=== PATIENT | male | born 1990 | race Caucasian/White ===

== ENCOUNTER 2019-08-07 20:17 | Inpatient (IN) | payer OTHER ==
[~2019-08-07] VITALS: Ht 175.3 cm; Wt 77.6 kg
[2019-08-07 20:20] VITALS: BP 173/116
--- NOTE | 2019-08-07 20:24 | NUR ---
PT AMBULARED TO ROOM 11.
[2019-08-07] MEDS ORDERED: NACL 0.9% 1,000 ML IV ONE (20:30)
--- NOTE | 2019-08-07 20:35 | NUR ---
PHLEB DRAWING BLOOD AT BEDSIDE.
--- NOTE | 2019-08-07 20:35 | NUR ---
29 YO M BIB SELF AND MOM PRESENTS TO ED C/O 06/29 DIFFUSE BLOATING ABDOMINAL PAIN X 6 HOURS WITH MILD NAUSEA, VOMITING X 2, DIARRHEA X 2. PT STATES "I FEEL LIKE I NEED TO BURP BUT I CAN'T". PT ADMITS TO DRINKING X 3 BEERS LAST NIGHT AND X 1 TODAY @ 1700. PT STATES HE LAST ATE THIS MORNING: [employer], [employer], [employer]. -- PT AWAKE, A/O X 4. CALM, COOPERATIVE. APPEARS UNCOMFORTABLE. BEHAVIOR AGE APPROPRIATE. ANSWERS QUESTIONS IN CLEAR, FULL SENTENCES. -- SKIN PINK, WARM, DRY. BREATHING EVEN, UNLABORED. -- ABD SOFT, NON TENDER. BOWEL SOUNDS HEARD +4. PMH-- DENIES RX-- TRIED TAKING MYLANTA AND PEPTO BISMO WITH NO RELIEF
--- NOTE | 2019-08-07 20:37 | NUR ---
Dr. Johnston examining patient.
[2019-08-07] MEDS ORDERED: KETOROLAC 30 MG/ML VIAL IVP ONE (20:40)
[2019-08-07 20:50] LABS: HEMATOCRIT 45.9 % (36-52); HEMOGLOBIN 15.4 g/dL (12.0-18.0); MEAN CORPUSCULAR HEMOGLOBIN 30 pg (27-31); MEAN CORPUSCULAR HGB CONC 34 g/dL (33-37); MEAN CORPUSCULAR VOLUME 90.4 fL (80-94); PLATELET COUNT (AUTO) 328 K/uL (140-450); RED BLOOD CELL COUNT(AUTO) 5.07 MIL/uL (4.20-6.10); RED CELL DISTRIBUTION WIDTH 13.3 % (11.6-13.7); WHITE BLOOD COUNT (AUTO) 22.1 K/uL (4.8-10.8)
--- NOTE | 2019-08-07 20:58 | NUR ---
PT TAKEN TO RADIOLOGY VIA .
[2019-08-07 21:00] LABS: ANION GAP 15.2 (8-16); CARBON DIOXIDE 26.5 mmol/L (21-32); CREATININE 0.9 mg/dL (0.7-1.3); POTASSIUM 3.7 mmol/L (3.5-5.1)
--- NOTE | 2019-08-07 21:05 | NUR ---
PT RETURNED FROM RADIOLOGY.
[2019-08-07 21:06] LABS: ALBUMIN 4.4 g/dL (3.4-5.0); TOTAL BILIRUBIN 0.5 mg/dL (0.0-1.0)
[2019-08-07 21:07] LABS: EOSINOPHILS % (MANUAL) 1 % (0-4); LYMPHOCYTES % (MANUAL) 6 % (20-46); MONOCYTES % (MANUAL) 9 % (5-12)
--- NOTE | 2019-08-07 21:24 | NUR ---
PT REPORTS 0/10 PAIN; MEDICATION EFFECTIVE.
--- NOTE | 2019-08-07 21:30 | NUR ---
PT REFUSING CT SCAN. PT STATES "I FEEL BETTER SO I DON'T NEED IT". DR. RODRIGUEZ SPEAKING WITH PT.
--- NOTE | 2019-08-07 22:38 | NUR ---
DR. RODRIGUEZ REEVALUATING AT BEDSIDE.
[2019-08-07] MEDS ORDERED: metroNIDAZOLE 500 MG/NS PREMIX 100 ML IV ONE (22:40)
[2019-08-07] MEDS ORDERED: cefTRIAXone 1,000 MG VIAL ONE (22:42)
--- NOTE | 2019-08-07 22:48 | NUR ---
PT AMBULATES TO RR WITH STEADY GAIT.
[2019-08-07] MEDS ORDERED: ACETAMINOPHEN 325 MG TAB PO PRN (22:50)
[2019-08-07] MEDS ORDERED: DOCUSATE SODIUM 100 MG GELCAP PO PRN (22:50)
[2019-08-07] MEDS ORDERED: LORazepam 2 MG/ML VIAL IM/IVP PRN (22:50)
[2019-08-07] MEDS ORDERED: ZOLPIDEM 5 MG TAB PO PRN (22:50)
[2019-08-07] MEDS ORDERED: ONDANSETRON 4 MG/2 ML VIAL IM/IVP PRN (22:50)
[2019-08-07] MEDS ORDERED: KETOROLAC 15 MG/ML VIAL IVP PRN (22:50)
[2019-08-07 23:31] LABS: PROTHROMBIN TIME 10.4 secs (10.8-13.4)
[2019-08-07 23:34] LABS: MAGNESIUM 1.9 mg/dL (1.8-2.4); PHOSPHORUS 3.9 mg/dL (2.5-4.9); THYROID STIMULATING HORMONE 2.12 uIU/mL (0.34-3.74)
[2019-08-07 23:46] LABS: APPEARANCE,URINE CLEAR (CLEAR); BLOOD, URINE 1+ (NEGATIVE); COLOR,URINE YELLOW (YELLOW); UGLUCOSE NEGATIVE (NEGATIVE)
[2019-08-07 23:47] LABS: BILIRUBIN,URINE NEGATIVE (NEGATIVE); LEUKOCYTE ESTERASE ,URINE NEGATIVE (NEGATIVE); NITRITE, URINE NEGATIVE (NEGATIVE)
[2019-08-07 23:50] LABS: BARBITURATE, URINE NEG. ng/ml (NEG <=200); BENZODIAZEPINE, URINE NEG. ng/mL (NEG <=200); CANNABINOID, URINE POS. ng/mL (NEG <=50); COCAINE, URINE NEG. ng/mL (NEG <=300); OPIATE, URINE NEG. ng/mL (NEG <=2000); PHENCYCLIDINE SCREEN,URINE NEG. ng/mL (NEG <=25); WBC,URINE 0-5 /HPF (0-5)
--- NOTE | 2019-08-07 23:54 | NUR ---
Patient will be admitted to care of Dr. Escobedo. Admited to [facility]. Will go to room 123A. Belongings list completed. Report to RODOLFO Castro.
[2019-08-08] VITALS: BP 149/92
--- NOTE | 2019-08-08 | NUR ---
PT ARRIVE VIA W/C TO ROOM 123 AND AMBULATED TO BED B INDEPENDENTLY WITH A STEADY GAIT. PT IS AOX4, BILINGUAL , SKIN INTACT WITH IV IS A 20G ON LEFT AC. V/S STABLE. PT SAYS PAIN IS TOLERABLE. MRSA SWAB DONE AND SENT TO LAB.ADMDSION INTERVEIW DONE AT BEDSIDE , PT HAS NO MEDICAL HX AND IS NPO AT THIS TIME. PENDING CONSULT WITH SURGEON TISH.
[2019-08-08] MEDS: DEXT 5% /NACL 0.9% 1,000 ML IV SCH ×3 (01:18→16:30)
[2019-08-08] MEDS: MORPHINE SULFATE 2 MG/ML SYR IVP PRN ×3 (01:19→15:11)
--- NOTE | 2019-08-08 01:20 | NUR ---
PT C/O SEVERE PAIN, GIVEN IVP MORPHINE WILL MONITOR FOR PAIN RELIEF. D5NS ORDERED TO RUN AT 100MLS/HR.
--- NOTE | 2019-08-08 06:49 | NUR ---
PATIENT HAS BEEN SCREENED AND CATEGORIZED LOW NUTRITION RISK. PATIENT WILL BE SEEN WITHIN 7 DAYS OF ADMISSION. 08/15/19 LIZZETTE CALDERA MS, RDN
--- NOTE | 2019-08-08 07:00 | NUR ---
PT IN BED NO C/O VOICED IV SITE INTACT AND RUNNING D5NS ORDERED. PT GIVEN IVP SCHEDULED FLAGYL.
[2019-08-08] MEDS: metroNIDAZOLE 500 MG/NS PREMIX 100 ML IV SCH ×3 (07:07→22:57)
--- NOTE | 2019-08-08 07:11 | NUR ---
RECEIVED ENDORSEMENT FROM CAMPAIGN ASSOCIATE NURSE. PATIENT IS AAOX4, [place] SPEAKING. RESPIRATIONS ARE EVEN AND UNLABORED ON ROOM AIR. PATIENT DENIES ANY PAIN AT THIS TIME. LEFT AC 20G IV INTACT, PATENT, AND INFUSING IVF. PLAN OF CARE WAS REVIEWED WITH THE PATIENT, PATIENT VERBALIZED UNDERSTANDING. SAFETY MEASURES IN PLACE, CALL LIGHT WITHIN REACH.
[2019-08-08 08:00] VITALS: BP 127/80
[2019-08-08] MEDS: LACTOBACILLUS RHAMNOSUS GG 1 EACH CAP PO SCH (08:04)
--- NOTE | 2019-08-08 08:04 | NUR ---
ADMINISTERED SCHEDULED MEDICATION. PATIENT TOLERATED WELL. NO OTHER NEEDS AT THIS TIME.
--- NOTE | 2019-08-08 08:44 | NUR ---
PATIENT WAS SEEN BY DR. WINSTON. CONSENT FOR PROCEDURE WAS OBTAINED.
[2019-08-08 08:54] LABS: BASOPHILS % (AUTO) 0.2 % (0.0-2.0); EOSINOPHILS # (AUTO) 0.2 K/uL (0-0.4); EOSINOPHILS % (AUTO) 1.3 % (0.0-4.0); HEMOGLOBIN 13.8 g/dL (12.0-18.0); LYMPHOCYTES # (AUTO) 1.8 K/uL (2.0-11.5); LYMPHOCYTES % (AUTO) 12.6 % (20.5-51.1); MEAN CORPUSCULAR HEMOGLOBIN 30 pg (27-31); MEAN CORPUSCULAR HGB CONC 33 g/dL (33-37); MEAN CORPUSCULAR VOLUME 91.6 fL (80-94); MONOCYTES # (AUTO) 1.4 K/uL (0.8-1.0); MONOCYTES % (AUTO) 9.5 % (1.7-9.3); NEUTROPHILS # (AUTO) 11.2 K/uL (1.8-7.7); NEUTROPHILS % (AUTO) 76.4 % (42.2-75.2); PLATELET COUNT (AUTO) 287 K/uL (140-450); RED BLOOD CELL COUNT(AUTO) 4.58 MIL/uL (4.20-6.10); RED CELL DISTRIBUTION WIDTH 13.1 % (11.6-13.7); WHITE BLOOD COUNT (AUTO) 14.6 K/uL (4.8-10.8)
--- NOTE | 2019-08-08 09:40 | NUR ---
PATIENT MOVED ROOMS. NO OTHER NEEDS AT THIS TIME.
[2019-08-08 09:50] LABS: ANION GAP 13.8 (8-16); CREATININE 0.8 mg/dL (0.7-1.3); POTASSIUM 3.8 mmol/L (3.5-5.1)
[2019-08-08 09:55] LABS: CHOL/HDL RATIO 5.4 (1-4.5); MAGNESIUM 1.9 mg/dL (1.8-2.4); PHOSPHORUS 3.4 mg/dL (2.5-4.9)
--- NOTE | 2019-08-08 11:10 | NUR ---
PATIENT RESTING IN BED. DENIES ANY PAIN. NO OTHER NEEDS AT THIS TIME.
[2019-08-08] MEDS ORDERED: ONDANSETRON 4 MG/2 ML VIAL IVP ONE (12:27)
[2019-08-08] MEDS ORDERED: PROPOFOL 200 MG/20 ML VIAL IV ONE (12:27)
[2019-08-08] MEDS ORDERED: LIDOCAINE MPF 1% 10 MG/ML VIAL INJ ONE (12:27)
[2019-08-08] MEDS ORDERED: ROCURONIUM 50 MG/5 ML VIAL IV ONE (12:27)
[2019-08-08] MEDS ORDERED: DESFLURANE 240 ML BTL INH ONE (12:27)
[2019-08-08] MEDS ORDERED: PHENYLEPHRINE 10 MG/ML VIAL IV ONE (12:27)
[2019-08-08] MEDS ORDERED: DEXAMETHASONE 4 MG/ML VIAL IVP ONE (12:27)
[2019-08-08] MEDS ORDERED: GLYCOPYRROLATE 0.2 MG/ML VIAL IV ONE (12:27)
[2019-08-08] MEDS ORDERED: KETOROLAC 30 MG/ML VIAL IVP ONE (12:27)
[2019-08-08] MEDS ORDERED: SUCCINYLCHOLINE CHLORIDE 200 MG/10 ML VIAL IV ONE (12:27)
--- NOTE | 2019-08-08 12:30 | NUR ---
PATIENT OFF UNIT FOR PROCEDURE. WILL MONITOR UPON RETURN
[2019-08-08] MEDS ORDERED: fentaNYL 0.05 MG/ML VIAL ONE (12:41)
[2019-08-08] MEDS ORDERED: MIDAZOLAM 2 MG/2 ML VIAL ONE (12:41)
[2019-08-08] MEDS: BUPIVACAINE-MPF/EPI 0.5% 30 ML VIAL INJ ONE ×2 (12:50→14:49)
[2019-08-08] MEDS ORDERED: HYDROmorphone 1 MG/ML AMP IVP PRN (13:05)
[2019-08-08] MEDS ORDERED: ONDANSETRON 4 MG/2 ML VIAL IVP PRN (13:05)
[2019-08-08] MEDS ORDERED: HYDROcodone/APAP 5/325 MG 1 TAB TAB PO PRN (14:05)
--- NOTE | 2019-08-08 15:00 | NUR ---
PATIENT RETURNED FROM LAP APPY. VS OBTAINED. PATIENT IS STABLE AT THIS TIME, WILL CONTINUE TO MONITOR.
[2019-08-08 16:00] VITALS: BP 141/99
--- NOTE | 2019-08-08 16:34 | NUR ---
PATIENT RESTING IN BED. CONTINUES TO C/O OF PAIN. IS AWARE. NO OTHER NEEDS AT THIS TIME,WILL CONTINUE TO MONITOR,
[2019-08-08] MEDS ORDERED: MORPHINE SULFATE 2 MG/ML SYR IVP ONE (17:25)
[2019-08-08] MEDS ORDERED: MORPHINE SULFATE 2 MG/ML SYR IVP PRN (17:25)
--- NOTE | 2019-08-08 17:27 | NUR ---
PATIENT AMBULATING AROUND UNIT WITH STEADY GAIT. NO OTHER NEEDS AT THIS TIME.
--- NOTE | 2019-08-08 19:13 | NUR ---
ENDORSED TO PRESSER AND [employer] NURSE FOR CONTINUITY OF CARE. PATIENT IS STABLE AT THIS TIME.
--- NOTE | 2019-08-08 19:15 | NUR ---
RECEIVED PT AWAKE ON BED, TALKING TO FAMILY MEMBERS AT BEDSIDE, 6/10 PAIN LEVEL AT THIS TIME, MADE AWARE OF NEXT DUE PAIN MED, ABDOMINAL INCISION X4 COVERED WITH DERMABAND, NO SIGNS OF BLEEDING OR DRAINAGE NOTED, TOLERATING CLEAR LIQUID DIET, IVF INFUSING WELL, PLAN OF CARE DISCUSSED, CALL LIGHT WITHIN REACH.
--- NOTE | 2019-08-08 22:30 | NUR ---
PT SEEN AMBULATING AROUND THE UNIT WITH STEADY GAIT ACCOMPANIED BY GIRLFRIEND , TOLERATING WELL, TOLERABLE PAIN AT THIS TIME, MONITORED CLOSELY.
[2019-08-09] VITALS: BP 127/86
--- NOTE | 2019-08-09 | NUR ---
PT SLEEPING, EASILY AROUSABLE, VITAL SIGNS STABLE, TOLERABLE PAIN AT THIS TIME, IVF INFUSING WELL, CONTINUE TO MONITOR CLOSELY.
[2019-08-09] MEDS: DEXT 5% /NACL 0.9% 1,000 ML IV SCH (03:39)
--- NOTE | 2019-08-09 03:43 | NUR ---
ROUNDS MADE, PT AWAKE, DENIES ANY PAIN, NEW IVF BAG HANGED, MONITORED CLOSELY.
[2019-08-09] MEDS: metroNIDAZOLE 500 MG/NS PREMIX 100 ML IV SCH (06:13)
--- NOTE | 2019-08-09 06:15 | NUR ---
PT SLEEPING, EASILY AROUSABLE, TOLERABLE PAIN AT THIS TIME, DUE FLAGYL IVPB ADMINISTERED, MONITORED CLOSELY.
[2019-08-09 06:30] LABS: BASOPHILS % (AUTO) 0.2 % (0.0-2.0); EOSINOPHILS % (AUTO) 0.1 % (0.0-4.0); HEMATOCRIT 40.5 % (36-52); HEMOGLOBIN 13.7 g/dL (12.0-18.0); LYMPHOCYTES # (AUTO) 1.3 K/uL (2.0-11.5); LYMPHOCYTES % (AUTO) 11.6 % (20.5-51.1); MEAN CORPUSCULAR HEMOGLOBIN 31 pg (27-31); MEAN CORPUSCULAR HGB CONC 34 g/dL (33-37); MEAN CORPUSCULAR VOLUME 91.2 fL (80-94); MONOCYTES # (AUTO) 0.9 K/uL (0.8-1.0); MONOCYTES % (AUTO) 7.5 % (1.7-9.3); NEUTROPHILS # (AUTO) 9.3 K/uL (1.8-7.7); NEUTROPHILS % (AUTO) 80.6 % (42.2-75.2); PLATELET COUNT (AUTO) 294 K/uL (140-450); RED BLOOD CELL COUNT(AUTO) 4.44 MIL/uL (4.20-6.10); RED CELL DISTRIBUTION WIDTH 13.1 % (11.6-13.7); WHITE BLOOD COUNT (AUTO) 11.6 K/uL (4.8-10.8)
[2019-08-09 06:55] LABS: ANION GAP 14.9 (8-16); CARBON DIOXIDE 25.1 mmol/L (21-32); CREATININE 0.8 mg/dL (0.7-1.3)
--- NOTE | 2019-08-09 07:18 | NUR ---
PT AWAKE, NO SIGNS OF DISTRESS, REPORT GIVEN TO RODOLFO MORALEZ FOR CONTINUITY OF CARE.
--- NOTE | 2019-08-09 07:19 | NUR ---
RECEIVED REPORT FROM BROADCAST CHECKER NURSE. PATIENT LYING DOWN IN BED SLEEPING, AROUSABLE BY VOICE. NO DISTRESS NOTED. AAOX4, CALM, COOPERATIVE, SKIN COLOR APPROPRIATE TO ETHNICITY, WARM TO TOUCH. HAS 4 ABD WOUNDS WITH DERMABOND GLUE S/P LAP APPENDECTOMY. PER NIGHT RN, PATIENT AMBULATED, PASSED GAS, AND EATING WITHOUT COMPLAINTS OF NAUSEA/VOMITING. REVIEWED PLAN OF CARE WITH PATIENT. PATIENT VERBALIZED UNDERSTANDING. SAFETY MEASURES IN PLACE, CALL LIGHT WITHIN REACH. WILL CONTINUE TO MONITOR .
[2019-08-09 08:00] VITALS: BP 148/85
[2019-08-09 08:19] LABS: T4 (THYROXINE) 8.4 ug/dL (4.5-12.0)
[2019-08-09] MEDS: LACTOBACILLUS RHAMNOSUS GG 1 EACH CAP PO SCH (09:32)
--- NOTE | 2019-08-09 09:33 | NUR ---
PATIENT LYING DOWN IN BED. NO DISTRESS NOTED. DENIES PAIN AT THIS TIME. SCHEDULED MEDICATIONS DUE GIVEN. WILL CONTINUE TO MONITOR.
--- NOTE | 2019-08-09 11:00 | NUR ---
PATIENT LYING DOWN IN BED ON HIS PHONE. NO DISTRESS NOTED. DENIES ANY PAIN. CONDITION UNCHANGED. WILL CONTINUE TO MONITOR.
--- NOTE | 2019-08-09 12:15 | NUR ---
DISCHARGE INSTRUCTIONS PROVIDED TO PATIENT/FAMILY AT BEDSIDE IN PREFERRED LANGUAGE OF MALAWIAN. INSTRUCTIONS ON DIET REGIMEN, NO HEAVY LIFTING S/P LAP IKER, WOUND CARE MANAGEMENT, SHOWER REGIMEN, AND FOLLOW-UP VISITS WITH PCP AND DR. WINSTON. NO NEW PRESCRIPTIONS. ANSWERED ALL OF PATIENT/FAMILY QUESTIONS REGARDING DISCHARGE. PATIENT/FAMILY VERBALIZED COMPLETE UNDERSTANDING. PATIENT AWAITING TO EAT LUNCH TO SEE IF HE CAN TOLERATE IT. WILL CONTINUE TO MONITOR.
--- NOTE | 2019-08-09 13:20 | NUR ---
PATIENT ALL DRESSED AND READY TO GO. NO NAUSEA/VOMITING, DENIES ABD PAIN AFTER EATING LUNCH. REPORTS HAVING A BM JUST NOW. ALL BELONGINGS WITH PATIENT. WHEELED PATIENT DOWN TO LOBBY VIA WHEELCHAIR. PATIENT DISCHARGED TO HOME AT THIS TIME IN STABLE CONDITION VIA PRIVATE VEHICLE.
== END 2019-08-09 13:20 | disposition home or self-care (01) | DRG 853 ==
LOC: MED 20:17 → MTU 22:47 → MMU 08-08 08:50
PROVIDERS: ADMIT General Practice; ATTEND General Practice
PROC: 0DTJ4ZZ Resection of Appendix, Percutaneous Endoscopic Approach (ICD-10-PCS; principal; 2019-08-08 12:30)
DX: A41.9 Sepsis, unspecified organism (principal); K35.33 Acute appendicitis with perforation, localized peritonitis, and gangrene, with abscess; K76.0 Fatty (change of) liver, not elsewhere classified; F12.90 Cannabis use, unspecified, uncomplicated; E78.5 Hyperlipidemia, unspecified
CPT/HCPCS: 36415; 74022; 80048; 80053; 80305; 81001; 82150; 82374; 83036; 83605; 83690; 83735; 83880; 84100; 84134; 84436; 84443; 85025; 85610; 85730; 86886; 86900; 86901; 87040; 87081; 87086; 88304; 96361; 96365; 96375; 99285; G0378; J0330; J0696; J1100; J1885; J2001; J2250; J2270; J2370; J2405; J2704; J3010; J3490; J7030; J7042; J7060

== ENCOUNTER 2021-10-10 01:03 | Emergency (ER) | payer SELFPAY ==
[~2021-10-10] VITALS: Ht 172.7 cm; Wt 83.9 kg
[2021-10-10 01:03] VITALS: BP 184/111
--- NOTE | 2021-10-10 01:03 | NUR ---
Kristel liu in [facility] - 10/10/21 at 0105 by YEHUDA PT MIAN
--- NOTE | 2021-10-10 01:03 | NUR ---
PT BIB [facility], PREBOOK. TAKEN TO CHAIR C
--- NOTE | 2021-10-10 01:21 | NUR ---
PATIENT [facility] DEPT. PATIENT EXAMINED BY DR. JOHNSON. PATIENT MEDICALLY CLEARED AND RELEASED IN CUSTODY IN STABLE CONDITION. ORIGINAL PRE-BOOK FORM GIVEN TO OFFICER ZULY, #[id number].
== END 2021-10-10 01:21 ==
LOC: MED 01:03
DX: Z02.89 Encounter for other administrative examinations (principal)
CPT/HCPCS: 99283